=== PATIENT | female | born 1975 | race Asian ===

== ENCOUNTER 2017-11-07 19:15 | Emergency (ER) | payer OTHER ==
[2017-11-07] MEDS ORDERED: Acetaminophen/oxyCODONE 325-5 MG Tab PO ONE (19:16)
[2017-11-07] MEDS ORDERED: Ondansetron 4 MG Tab.DIS PO ONE (19:16)
[2017-11-07] MEDS ORDERED: Ondansetron 4 MG/2 ML SDV IV ONE (20:28)
[2017-11-07] MEDS ORDERED: Morphine 2 MG/ML Syringe IVPUSH ONE (20:29)
[2017-11-07] MEDS ORDERED: Sodium Chloride 0.9% 1,000 ML IV SCH (20:30)
[2017-11-07] MEDS ORDERED: HYDROmorphone 0.5 MG/0.5 ML Syringe IVPUSH ONE (20:55)
[2017-11-07] MEDS ORDERED: Ketorolac 30 MG/ML SDV IVPUSH ONE (20:55)
[2017-11-07 21:09] LABS: CHLORIDE,CL 102 mmol/L (101-111); SODIUM,NA 138 mmol/L (135-145)
--- NOTE | 2017-11-07 21:14 | EDM.PDOC ---
ED HPI GENERAL MEDICAL PROBLEM - General Chief Complaint: Abdominal Pain Stated Complaint: SEVERE PAIN LEFT SAID [id number] Time Seen by Provider: 11/07/17 22:05 Source of Information: Reports: Patient History Limitations: Reports: No Limitations - History of Present Illness INITIAL COMMENTS - FREE TEXT/NARRATIVE: severe left flank and left abdominal pain, nauseated. Started this am and progressed. Admits hx of kidney stones in past but does not feel the same. 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: Reports: Polycystic Ovaries Social & Family History - Tobacco Use Smoking Status *Q: Unknown Ever Smoked Second Hand Smoke Exposure: No - Caffeine Use Caffeine Use: Reports: Coffee, Soda - Alcohol Use Days Per Week of Alcohol Use: 0 Date of Last Drink: 11/07/17 Time of Last Drink: 12:30 - Recreational Drug Use Recreational Drug Use: No ED ROS GENERAL - Review of Systems Review Of Systems: See Below Constitutional: Denies: Fever, Chills HEENT: Reports: No Symptoms Respiratory: Reports: No Symptoms Cardiovascular: Reports: No Symptoms GI/Abdominal: Reports: Abdominal Pain, Nausea : Reports: Flank Pain Musculoskeletal: Reports: No Symptoms Skin: Reports: No Symptoms Neurological: Reports: No Symptoms Psychiatric: Reports: No Symptoms ED EXAM, GI/ABD - Physical Exam Exam: See Below Exam Limited By: No Limitations General Appearance: Alert, Moderate Distress, Obese Eyes: Bilateral: EOMI Ears: Normal External Exam Nose: Normal Inspection Throat/Mouth: Normal Inspection Head: Atraumatic, Normocephalic Neck: Normal Inspection Respiratory/Chest: No Respiratory Distress, Lungs Clear, Normal Breath Sounds Cardiovascular: Normal Peripheral Pulses, Regular Rate, Rhythm GI/Abdominal Exam: Normal Bowel Sounds, Soft, No Organomegaly, No Distention, Tender (generalized lower abdominal greater in LLQ) Back Exam: Normal Inspection, Full Range of Motion Extremities: Normal Inspection, Normal Range of Motion Neurological: Alert, Oriented, Normal Cognition Psychiatric: Normal Affect Skin Exam: Warm, Dry, Intact, Normal Color Course - Vital Signs Last Recorded V/S: Last Vital Signs Temp 98.2 F 11/07/17 21:55 Pulse 82 11/07/17 21:55 Resp 14 11/07/17 21:55 BP 121/83 11/07/17 21:55 Pulse Ox 98 11/07/17 21:55 - Orders/Labs/Meds Labs: Laboratory Tests 11/07/17 11/07/17 11/07/17 Range/Units 19:35 19:35 20:35 WBC Cancelled RBC Cancelled Hgb Cancelled Hct Cancelled MCV Cancelled MCH Cancelled MCHC Cancelled Plt Count Cancelled Neut % (Auto) (42.2-75.2) % Lymph % (Auto) (20.5-50.1) % [place] % (Auto) (2-8) % Eos % (Auto) (1.0-3.0) % Baso % (Auto) (0.0-1.0) % Add Manual Diff Neutrophils % (Manual) (42-75) % Lymphocytes % (Manual) (20-50) % Monocytes % (Manual) (2-8) % Sodium (135-145) mmol/L Potassium (3.6-5.0) mmol/L Chloride (101-111) mmol/L Carbon Dioxide (21.0-31.0) mmol/L Anion Gap BUN (7-18) mg/dL Creatinine (0.6-1.3) mg/dL Est Cr Clr Drug Dosing mL/min Estimated GFR (MDRD) BUN/Creatinine Ratio Glucose (74-105) mg/dL Calcium (8.4-10.2) mg/dl Total Bilirubin (0.2-1.0) mg/dL AST (10-42) IU/L ALT (10-60) IU/L Alkaline Phosphatase (42-121) IU/L Total Protein (6.7-8.2) g/dl Albumin (3.2-5.5) g/dl Globulin Albumin/Globulin Ratio Urine Color Yellow (YELLOW) Urine Appearance Clear (CLEAR) Urine pH 6.5 (5.0-9.0) Ur Specific [place] 1.020 (1.005-1.030) Urine Protein Trace H (NEGATIVE) Urine Glucose (UA) Negative (NEGATIVE) Urine Ketones Negative (NEGATIVE) Urine Occult Blood Large H (NEGATIVE) Urine Nitrite Negative (NEGATIVE) Urine Bilirubin Negative (NEGATIVE) Urine Urobilinogen 1.0 (0.2-1.0) mg/dL Ur Leukocyte Esterase Negative (NEGATIVE) Urine RBC Not Reportable Urine WBC Not Reportable Urine HCG, Qual Negative 11/07/17 11/07/17 Range/Units 20:35 20:35 WBC 8.0 RBC 5.26 Hgb 15.0 Hct 43.3 MCV 82.3 MCH 28.5 MCHC 34.6 Plt Count 225 Neut % (Auto) 63.9 (42.2-75.2) % Lymph % (Auto) 22.4 (20.5-50.1) % [place] % (Auto) 10.7 H (2-8) % Eos % (Auto) 2.1 (1.0-3.0) % Baso % (Auto) 0.9 (0.0-1.0) % Add Manual Diff Yes Neutrophils % (Manual) 76 H (42-75) % Lymphocytes % (Manual) 18 L (20-50) % Monocytes % (Manual) 6 (2-8) % Sodium 138 (135-145) mmol/L Potassium 3.6 (3.6-5.0) mmol/L Chloride 102 (101-111) mmol/L Carbon Dioxide 28.0 (21.0-31.0) mmol/L Anion Gap 11.6 BUN 12 (7-18) mg/dL Creatinine 0.7 (0.6-1.3) mg/dL Est Cr Clr Drug Dosing 93.25 mL/min Estimated GFR (MDRD) > 60 BUN/Creatinine Ratio 17.14 Glucose 100 (74-105) mg/dL Calcium 8.8 (8.4-10.2) mg/dl Total Bilirubin 0.7 (0.2-1.0) mg/dL AST 35 (10-42) IU/L ALT 52 (10-60) IU/L Alkaline Phosphatase 45 (42-121) IU/L Total Protein 7.1 (6.7-8.2) g/dl Albumin 4.1 (3.2-5.5) g/dl Globulin 3.0 Albumin/Globulin Ratio 1.37 Urine Color (YELLOW) Urine Appearance (CLEAR) Urine pH (5.0-9.0) Ur Specific [place] (1.005-1.030) Urine Protein (NEGATIVE) Urine Glucose (UA) (NEGATIVE) Urine Ketones (NEGATIVE) Urine Occult Blood (NEGATIVE) Urine Nitrite (NEGATIVE) Urine Bilirubin (NEGATIVE) Urine Urobilinogen (0.2-1.0) mg/dL Ur Leukocyte Esterase (NEGATIVE) Urine RBC Urine WBC Urine HCG, Qual Meds: Medications Discontinued Medications Generic Name Dose Route Start Last Admin Trade Name Freq PRN Reason Stop Dose Admin Hydromorphone HCl 1 mg 11/07/17 20:55 11/07/17 21:02 Dilaudid IVPUSH 11/07/17 20:56 1 mg ONETIME ONE Administration Sodium Chloride 1,000 mls @ 999 mls/hr 11/07/17 20:30 11/07/17 20:40 Normal Saline IV 11/11/17 20:28 999 mls/hr ASDIRECTED [place] Administration Ketorolac Tromethamine 30 mg 11/07/17 20:55 11/07/17 21:00 Toradol IVPUSH 11/07/17 20:56 30 mg ONETIME ONE Administration Morphine Sulfate 2 mg 11/07/17 20:29 11/07/17 20:41 Morphine IVPUSH 11/07/17 20:30 2 mg ONETIME ONE Administration Ondansetron HCl 4 mg 11/07/17 20:28 11/07/17 20:40 Zofran IV 11/07/17 20:29 4 mg ONETIME ONE Administration Ondansetron HCl Confirm 11/07/17 22:02 11/07/17 22:12 Zofran Odt Administered 11/07/17 22:03 Not Given Dose 8 mg .ROUTE .STK-MED ONE Oxycodone/Acetaminophen Confirm 11/07/17 22:02 11/07/17 22:11 Percocet 325-5 Mg Administered 11/07/17 22:03 Not Given Dose 2 tab .ROUTE .STK-MED ONE - Radiology Interpretation Free Text/Narrative:: CT abdomen and pelvis: 2 adjacent stones are at the left ureterovesicular junction, the larger measuring 3mm, mild left hydroureteronephrosis and edematous swelling of left kidney - Re-Assessments/Exams Free Text/Narrative Re-Assessment/Exam: 11/08/17 06:54 Pain mostly resolved prior to discharge. describe low ache in pelvis. Nausea resolved. Departure - Departure Time of Disposition: 22:02 Disposition: Home, Self-Care 01 Condition: Good Clinical Impression: Renal calculus, left - Discharge Information Instructions: Kidney Stones, [id number] Referrals: PCP,None [Primary Care Provider] - Forms: ED Department Discharge Additional Instructions: Increase fluids Ibuprofen 600mg every 6 hours for mild to moderate pain Percocet 5/325 one every 6 hours as needed for severe pain 14 Zofran 4mg ODT one evry 6 hours as needed for nausea 10 follow up in clinic this week
[2017-11-07 21:56] VITALS: BP 121/83
[2017-11-07] MEDS ORDERED: Acetaminophen/oxyCODONE 325-5 MG Tab ONE (22:02)
[2017-11-07] MEDS ORDERED: Ondansetron 4 MG Tab.DIS ONE (22:02)
== END 2017-11-07 22:15 | disposition home or self-care (01) ==
LOC: DL.ED 19:15
DX: N13.2 Hydronephrosis with renal and ureteral calculous obstruction (principal); Z79.899 Other long term (current) drug therapy; Z87.442 Personal history of urinary calculi
CPT/HCPCS: 36415; 74176; 80053; 81001; 81025; 85025; 96361; 96374; 96375; 99284; A9270; J1170; J1885; J2270; J2405; J7030